=== PATIENT | male | born 1970 | race Caucasian/White ===

== ENCOUNTER 2025-07-08 19:12 | Emergency (ER) | payer SELFPAY ==
[2025-07-08] MEDS ORDERED: Bacitracin 1 PK ONE (19:39)
[2025-07-08] MEDS ORDERED: Cephalexin 250 MG CAP ONE (19:51)
[2025-07-08] MEDS ORDERED: Boostrix 0.5 ML (Tdap) VIAL (>/=7 yrs of age) ONE (19:51)
== END 2025-07-08 20:42 | disposition home or self-care (01) ==
LOC: CSHERS 19:12
DX: S80.11XA Contusion of right lower leg, initial encounter (principal); I10 Essential (primary) hypertension; Z23 Encounter for immunization; W20.8XXA Other cause of strike by thrown, projected or falling object, initial encounter
CPT/HCPCS: 90471; 90715